=== PATIENT | male | born 1980 | race Hispanic/Latino ===

== ENCOUNTER 2021-03-15 12:01 | Emergency (ER) | payer SELFPAY ==
[2021-03-15 14:35] LABS: Basophils % 0.9 % (0-1.3); Hematocrit 36.1 % (39.6-49.0); Lymphocytes % 24.1 % (15.3-44.8); MPV 8.3 fL (7.6-11.3); RBC Red Blood Cell Count 5.02 M/uL (4.33-5.43)
[2021-03-15 14:52] LABS: ALT/SGPT 130 U/L (12-78); AST/SGOT 97 U/L (15-37); Albumin 3.6 g/dL (3.4-5.0); Alkaline Phosphatase 119 U/L (45-117); BUN Blood Urea Nitrogen 7 mg/dL (7-18); Bicarbonate 25 mmol/L (21-32); Bilirubin Direct 0.2 mg/dL (0-0.2); Bilirubin Total 0.7 mg/dL (0.2-1.0); Glucose Level 90 mg/dL (74-106); Magnesium 2.3 mg/dL (1.8-2.4); NT PRO-BNP 45 pg/mL (<125); Potassium 4.3 mmol/L (3.5-5.1); Protein, Total 8.1 g/dL (6.4-8.2); Sodium Level 139 mmol/L (136-145); Troponin (Emerg Dept Use Only) < 0.02 ng/mL (0.0-0.045)
--- NOTE | 2021-03-15 16:03 | RAD REPORT ---
EXAM DESCRIPTION: RAD - Chest Single View - 03/15/2021 3:11 pm CLINICAL HISTORY: CHEST PAIN Chest pain. COMPARISON: No comparisons FINDINGS: Portable technique limits examination quality. The lungs are grossly clear. The heart is normal in size. No displaced fractures.Small hiatal hernia. IMPRESSION: No acute intrathoracic process suspected.
[2021-03-15 17:17] LABS: Urine Blood Negative (Negative); Urine Glucose Negative (Negative); Urine Protein Negative (Negative); Urine pH 6.5 (5.0-7.0)
[2021-03-15] MEDS ORDERED: HYDROCODONE/APAP 7.5/325 MG TAB ONE (17:33)
[2021-03-15] MEDS ORDERED: LIDOCAINE VISCOUS 2% SOLN 15 ML UDC ONE (17:34)
[2021-03-15] MEDS ORDERED: MAGNES/ALUMIN/SIMET 30ML UCUP ONE (17:34)
--- NOTE | 2021-03-15 17:40 | RAD REPORT ---
EXAM DESCRIPTION: US - Extrem Venous W Compress Jerry - 03/15/2021 5:34 pm CLINICAL HISTORY: Pain;Swelling Bilateral leg edema and swelling. COMPARISON: No comparisons TECHNIQUE: Real-time sonographic interrogation of the left and right lower extremity deep venous sys tems was performed. FINDINGS: Normal compressibility, flow augmentation, phasic flow and spontaneous flow is identified in both the left and right lower extremity deep venous systems. IMPRESSION: No sonographic evidence of left or right lower extremity deep venous thrombosis.
--- NOTE | 2021-03-15 17:40 | RAD REPORT ---
EXAM DESCRIPTION: US - Abdomen Exam Limited - 03/15/2021 5:34 pm CLINICAL HISTORY: elevated liver enzymes Abdominal pain COMPARISON: No comparisons FINDINGS: The gallbladder demonstrates no gallstones. No pericholecystic fluid or gallbladder wall t hickening. The common bile duct is normal measuring 4 mm. The liver demonstrates diffuse fatty infiltration. IMPRESSION: Negative gallbladder/biliary tree findings. Fatty liver.
[2021-03-15 17:51] LABS: Barbiturates NEGATIVE (NEGATIVE); Benzodiazepines NEGATIVE (NEGATIVE); Cocaine NEGATIVE (NEGATIVE); METHAMPHETAM NEGATIVE (NEGATIVE); Methadone NEGATIVE (NEGATIVE); Opiates NEGATIVE (NEGATIVE); Phencyclidine NEGATIVE (NEGATIVE); THC Cannibis NEGATIVE (NEGATIVE)
[2021-03-15 18:42] LABS: Protime INR 1.03
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
[2021-03-15 19:22] VITALS: TEMP 97.8
[2021-03-15 19:23] VITALS: BP 135/90; O2SAT 100
--- NOTE | 2021-03-16 11:19 | EKG ---
Test Date: 2021-03-15 Test Time: 16:41:18 Dry Cleaning Teacher: SARAH MEASUREMENT RESULTS: Intervals: Rate: 87 CT: 150 QRSD: 80 QT: 350 QTc: 421 [place]: P: 66 CT: 150 QRS: 71 T: 46 INTERPRETIVE STATEMENTS: Normal sinus rhythm with sinus arrhythmia Normal ECG No previous ECG available for comparison Electronically Signed On 03-16-21 11:16:32 CDT by Yousif Mcgarry
== END 2021-03-15 19:11 | disposition home or self-care (01) ==
LOC: ER 12:01
DX: R94.5 Abnormal results of liver function studies (principal)
CPT/HCPCS: 36415; 71045; 76705; 80048; 80076; 80307; 81003; 83735; 83880; 84484; 85025; 85610; 93005; 93970